=== PATIENT | male | born 1960 | race African-American/Black ===

== ENCOUNTER 2019-07-07 05:39 | Inpatient (IN) | payer BC ==
[2019-06-24 11:32] VITALS: BMI 32.1
[~2019-07-07 05:39] MED LIST: CELECOXIB 200 MG CAPSULE PO ONE; PANTOPRAZOLE 40 MG TABLET (FP) PO ONE; oxyCODONE HCL 10 MG SUSTAINED ACTING TABLET PO ONE
[2019-07-07] MEDS ORDERED: PANTOPRAZOLE 40 MG TABLET (FP) ONE (06:44)
[2019-07-07] MEDS ORDERED: oxyCODONE HCL 10 MG SUSTAINED ACTING TABLET ONE (06:45)
[2019-07-07] MEDS ORDERED: CELECOXIB 200 MG CAPSULE ONE (06:45)
[2019-07-07] MEDS ORDERED: BUPIVACAINE LIPOSOME/PF (EXPAREL) 266 MG/20 ML VIAL ONE (06:48)
[2019-07-07] MEDS ORDERED: SODIUM CHLORIDE 0.9% P/F 10 ML VIAL IJ ONE (06:48)
[2019-07-07] MEDS ORDERED: MIDAZOLAM HCL 2 MG/2 ML SINGLE DOSE VIAL ONE (06:48)
[2019-07-07] MEDS ORDERED: BUPIVACAINE HCL/PF 0.5% (5MG/ML) 10 ML VIAL ONE (07:10)
--- NOTE | 2019-07-07 07:42 | HP ---
Admitting History and Physical - Admission Chief Complaint: left knee osteoarthritis x years History of Present Illness: 58 year old male presents in regard to their left knee. Long-standing history of left knee osteoarthritis. Patient complains of pain, limited range of motion , difficulty ambulating, and difficulty with activities of daily living. Patient has failed conservative treatment options including PO medications, activity modification, injections, and exercise programs. At this point, patient would like to proceed with surgical intervention, left total knee arthroplasty MAKOplasty. History Source: Patient - Past Medical History Musculoskeletal: Yes: Osteoarthritis - Past Surgical History Additional Past Surgical History: See written history & physical. - Smoking History Smoking history: Current some day smoker Have you smoked in the past 12 months: Yes If you are a former smoker, when did you quit?: SMOKES 1 CIGAR PER YR - Alcohol/Substance Use Hx Alcohol Use: Yes (1 BEER) Home Medications - Allergies Allergies/Adverse Reactions: Allergies Allergy/AdvReac Type Severity Reaction Status Date / Time latex AdvReac Mild DRY SKIN Verified 06/24/19 11:20 - Home Medications Home Medications: Ambulatory Orders NK [No Known Home Medication] 06/24/19 Review of Systems - Review of Systems Musculoskeletal: reports: Decreased ROM (left knee), Joint Pain (left knee), Joint Swelling (left knee) Physical Examination Vital Signs: Vital Signs Temperature 98.4 F 07/07/19 06:58 Pulse Rate 70 07/07/19 06:58 Respiratory Rate 18 07/07/19 06:58 Blood Pressure 127/84 07/07/19 06:58 O2 Sat by Pulse Oximetry (%) Constitutional: Yes: Well Nourished, No Distress Eyes: Yes: Conjunctiva Clear HENT: Yes: Atraumatic, Normocephalic Neck: Yes: Supple Cardiovascular: Yes: Regular Rate and Rhythm Respiratory: Yes: Regular Gastrointestinal: Yes: Soft ...Rectal Exam: Yes: Deferred Musculoskeletal: Yes: Joint Stiffness (left knee), Joint Swelling (left knee) Assessment/Plan 58 year old male presents in regard to their left knee. Long-standing history of left knee osteoarthritis. Patient complains of pain, limited range of motion , difficulty ambulating, and difficulty with activities of daily living. Patient has failed conservative treatment options including PO medications, activity modification, injections, and exercise programs. At this point, patient would like to proceed with surgical intervention, left total knee arthroplasty MAKOplasty. Pros, cons, risks, benefits, and alternatives of a left total knee arthroplasty MAKOplasty were discussed with the patient at length. Patient confirms their understanding and consents to proceed with a left total knee arthroplasty MAKOplasty.
[2019-07-07] MEDS ORDERED: VANCOMYCIN 1,000 MG VIAL (RESTRICTED TO ID ONLY) ONE (07:52)
[2019-07-07] MEDS ORDERED: TRANEXAMIC ACID 1000 MG/10 ML VIAL ONE ×3 (07:52→11:06)
[2019-07-07] MEDS ORDERED: ceFAZolin SODIUM 1 GM VIAL ONE ×2 (07:53→09:01)
[2019-07-07] MEDS ORDERED: SUCCINYLCHOLINE CHLORIDE 200 MG/10 ML SYRINGE ONE (08:10)
[2019-07-07] MEDS ORDERED: PROPOFOL 20 ML ONE ×2 (08:10→10:09)
[2019-07-07] MEDS ORDERED: TRANEXAMIC ACID 1000 MG/10 ML VIAL IVPUSH ONE (08:30)
[2019-07-07] MEDS ORDERED: CEFAZOLIN 2 GM in DEXTROSE 5%-WATER - 50 ML IVPB ONE (08:30)
[2019-07-07] MEDS ORDERED: DEXAMETHASONE SOD PHOSPHATE 4 MG/1 ML VIAL ONE (09:07)
[2019-07-07] MEDS ORDERED: ONDANSETRON 4 MG/2 ML VIAL ONE (09:07)
[2019-07-07] MEDS ORDERED: KETOROLAC TROMETHAMINE 30 MG/1 ML VIAL ONE (09:07)
[2019-07-07] MEDS ORDERED: ACETAMINOPHEN INJECTION 100 ML IVPB ONE (12:07)
[2019-07-07] MEDS ORDERED: ACETAMINOPHEN 1000 MG/100 ML VIAL (NON FORMULARY) IVPB ONE (12:18)
--- NOTE | 2019-07-07 12:18 | OP ---
Operative Note - Note: Operative Date: 07/07/19 Pre-Operative Diagnosis: left knee OA Operation: left MADDI TKA Post-Operative Diagnosis: Same as Pre-op Surgeon: Booker Steiner Enamel Sprayer: Nat Pryor Anesthesia: Spinal Estimated Blood Loss (mls): 200
[2019-07-07] MEDS ORDERED: ONDANSETRON 4 MG/2 ML VIAL IVPUSH PRN (12:19)
[2019-07-07] MEDS ORDERED: MAGNESIUM HYDROX 2400MG/30ML ORAL SUSPENSION 30 ML CUP PO PRN (12:19)
[2019-07-07] MEDS ORDERED: MAG HYDROX/AL HYDROX/SIMETH 30 ML UNIT-DOSE CUP PO PRN (12:19)
[2019-07-07] MEDS ORDERED: traMADol HCL 50 MG TABLET PO PRN (12:39)
[2019-07-07] MEDS ORDERED: oxyCODONE HCL 5 MG TABLET PO PRN (12:39)
[2019-07-07] MEDS: traMADol HCL 50 MG TABLET PO SCH ×2 (12:48→12:55)
[2019-07-07] MEDS: LACTATED RINGERS SOLUTION 1,000 ML IV SCH (12:52)
[2019-07-07] MEDS: oxyCODONE HCL 5 MG TABLET PO PRN (16:30)
[2019-07-07] MEDS: KETOROLAC TROMETHAMINE 30 MG/1 ML VIAL IVPUSH SCH (16:30)
[2019-07-07] MEDS: CEFAZOLIN 2 GM/D5W 2 GM/50 ML ML IVPB SCH (18:46)
[2019-07-07] MEDS: ACETAMINOPHEN 325 MG TABLET (FP) PO SCH (18:46)
[2019-07-07] MEDS ORDERED: DEXAMETHASONE SOD PHOSPHATE 10 MG/1 ML VIAL IVPB ONE (20:00)
[2019-07-07] MEDS: SENNOSIDES/DOCUSATE COMBO (SENNA PLUS) TABLET (UD) PO SCH (21:37)
[2019-07-07] MEDS: ASCORBIC ACID 500 MG TABLET (FP) PO SCH (21:37)
[2019-07-07] MEDS: CELECOXIB 200 MG CAPSULE PO SCH (21:37)
[2019-07-07] MEDS: GABAPENTIN 300 MG CAPSULE (FP) PO SCH (21:37)
[2019-07-07] MEDS: oxyCODONE HCL 10 MG SUSTAINED ACTING TABLET PO SCH (21:39)
[2019-07-08] MEDS: ACETAMINOPHEN 325 MG TABLET (FP) PO SCH ×4 (00:45→23:40)
[2019-07-08] MEDS: KETOROLAC TROMETHAMINE 30 MG/1 ML VIAL IVPUSH SCH ×2 (00:45→06:19)
[2019-07-08] MEDS: CEFAZOLIN 2 GM/D5W 2 GM/50 ML ML IVPB SCH (01:03)
[2019-07-08 08:04] LABS: HEMATOCRIT 45.7 % (35.4-49); HEMOGLOBIN 15.4 GM/dl (11.7-16.9); MCH 31.3 pg (25.7-33.7); MCHC 33.7 g/dl (32.0-35.9); MEAN CELL VOLUME 93.1 fl (80-96); MEAN PLT VOLUME 10.4 fl (7.5-11.1); PLATELET COUNT 172 K/MM3 (134-434); RBC 4.91 M/mm3 (4.00-5.60); RDW 13.2 % (11.9-15.9); WHITE BLOOD COUNT 11.9 K/mm3 (4.0-10.8)
[2019-07-08 08:14] LABS: CALCIUM 8.7 mg/dl (8.5-10); CREATININE 1.1 mg/dl (0.55-1.3); POTASSIUM 5.4 mmol/L (3.5-5.1)
[2019-07-08] MEDS: ASPIRIN 325 MG TABLET PO SCH (08:46)
[2019-07-08] MEDS: ASCORBIC ACID 500 MG TABLET (FP) PO SCH ×2 (09:38→21:30)
[2019-07-08] MEDS: MULTIVITAMINS (DAILY MVI) TABLET (FP) PO SCH (09:38)
[2019-07-08] MEDS: CELECOXIB 200 MG CAPSULE PO SCH ×2 (09:38→21:30)
[2019-07-08] MEDS: oxyCODONE HCL 10 MG SUSTAINED ACTING TABLET PO SCH ×2 (09:38→21:29)
[2019-07-08] MEDS: SENNOSIDES/DOCUSATE COMBO (SENNA PLUS) TABLET (UD) PO SCH ×2 (09:38→21:30)
[2019-07-08] MEDS: GABAPENTIN 300 MG CAPSULE (FP) PO SCH ×2 (09:38→21:30)
[2019-07-08] MEDS: PANTOPRAZOLE 40 MG TABLET (FP) PO SCH (09:38)
--- NOTE | 2019-07-08 11:22 | SPEC ---
DATE OF OPERATION: 07/07/2019 PREOPERATIVE DIAGNOSIS: Left knee osteoarthritis. POSTOPERATIVE DIAGNOSIS: Left knee osteoarthritis. PROCEDURE: Left total knee replacement with MAKOplasty robotic navigation. ATTENDING SURGEON: Booker Steiner MD PEARL STRINGER: JOSELINE Temple ANESTHESIA: Spinal plus sedation. ESTIMATED BLOOD LOSS: 200 mL. COMPLICATIONS: None. DISPOSITION: The patient was transferred to the PACU in stable condition. IMPLANTS USED: [place] [employer] cementless knee components, size 4 femoral component, size 5 tibial component, 11-mm posterior stabilized polyethylene component, 29-mm patellar component. INDICATIONS: This is a 58-year-old male who presented to the office complaining of severe left knee pain. Has seen and examined by Dr. Steiner and diagnosed with severe left knee osteoarthritis. The patient was initially treated conservatively with injections, medications, and physical therapy but continued to have severe pain and ambulatory dysfunction. He was, therefore, indicated for a left total knee replacement. The risks, benefits, and alternatives to the procedure were explained to the patient in great detail, and he elected to proceed with the procedure. DESCRIPTION OF PROCEDURE: On the day of surgery, the patient was taken to the operating room and placed on the OR table. Spinal anesthesia was administered by the anesthesiologist. The patient was then positioned supine on the table and all bony prominences were padded. The knee was then prepped and draped in the usual sterile fashion and intravenous antibiotics were given for infection prophylaxis. A surgical time-out was then performed with the team, and the patients identity, procedure, side, availability of implants, and the administration of antibiotics was confirmed. With the knee flexed, a midline incision was made and carried down through the subcutaneous fat to the underlying retinaculum. A medial parapatellar arthrotomy was performed. This was followed by a subperiosteal dissection of the tissue off the proximal, medial tibia. A portion of fat pad was removed from under the patellar tendon, and a small portion of fat was excised off the distal supracondylar femur. Electrocautery and an Aquamantys bipolar sealing device were used to achieve hemostasis. The knee was then flexed further and the anterior horn of the lateral meniscus was released from the midline. Next, the anterior and posterior cruciate ligaments were transected. Grade 4 changes were noted diffusely throughout the knee. Femoral and tibial checkpoints were then placed in the appropriate location using a mallet. Two parallel bicortical self-drilling pins were placed in the tibial diaphysis after making stab incisions and bluntly dissecting down to bone. Two pins were then placed in the distal supracondylar femur. The Syn[employer] navigation arrays were then attached to both the femoral and tibial pins and the lower extremity was then registered to the robotic navigation device using various joint movements, as well as inputting several dozen reference points. The knee was then taken through a full range of motion with a corrective force applied. Alignment in varus/valgus as well as flexion/extension and soft tissue balance was measured in various positions. The navigation device showed a numerical and graphic representation of the soft tissue balance. The components were repositioned virtually using the software until optimal soft tissue balance was achieved on screen. Once this was accomplished, the final plan was saved and sent to the robot. Self-retaining retractors were then placed at the joint line for exposure and protection of the collateral ligaments. The robot was brought into the sterile field and registered with the navigation device. The robotic arm with attached oscillating saw blade was then used to perform femoral and tibial bone cuts as per the saved software plan. The femoral box cut was made using the appropriately sized manual cutting guide. The knee was then irrigated. Trial components were placed and the knee was taken through a full range of motion to assess soft tissue balance and alignment. The range of motion was found to be excellent and the soft tissue balance was optimal and according to plan. The knee was then put into extension and the patella everted. The synovium around the patella was circumscribed with electrocautery. A caliper was used to measure the patellar thickness and a saw was then used to resect the patella at the chondro-osseous junction. The cut surface was then sized and drilled for the appropriate patellar button, with care taken to medialize it. A trial patella was then placed and the knee was again taken through a full range of motion. The knee was found to have both good balance and good patellar tracking. All of the components were removed except the tibial base plate. The appropriate instrumentation was used to drill and punch the proximal tibia for the keel of the final component. All bony surfaces were then cleaned with pulsatile lavage and dried. Cementless [place] [employer] knee replacement components were then impacted in place and found to have a stable press-fit. A trial polyethylene component was placed and the knee was again taken through a full range of motion to assess stability, balance, and patellar tracking. This was found to be optimal and the trial polyethylene was exchanged for the appropriately sized real implant. The wound was then thoroughly irrigated with normal saline. A 3-minute dilute Betadine lavage was performed. The knee was again irrigated using a pulsatile lavage device. A periarticular injection was used to locally infiltrate the capsular tissues surrounding the implant and prosthesis. Then No. 1 Polysorb and 0 VLoc 180 barbed sutures were used to close the arthrotomy. Then No. 1 Polysorb and 2-0 VLoc 90 sutures were used in the subcutaneous tissues. Then 4-0 undyed Vicryl and Dermabond skin adhesive was used to close the stab incisions made for the navigation pins. The skin was closed using both 3-0 VLoc 90 suture in a running subcuticular fashion and Dermabond skin adhesive. Once this was completed a sterile Aquacel dressing and compressive Evangelist-wrap was applied. The patient was then awakened and taken to the PACU in stable condition. Darwin [id number]
--- NOTE | 2019-07-08 14:16 | PN ---
Progress Note (short form) - Note Progress Note: ANESTHESIA POSTOP 58 YO MALE POD#1 S/P L TKA Patient doing well. Sitting in Chair. Pain adequately controlled. Tolerating PO VSS, Afebrile Continue current care. Encouraged PT and IS. No anesthetic complications.
[2019-07-08] MEDS: oxyCODONE HCL 5 MG TABLET PO PRN (15:02)
--- NOTE | 2019-07-09 05:32 | PN ---
Progress Note (short form) - Note Progress Note: Pt seen and examined yesterday evening. Doing well. Block resolving. AVSS Selected Entries 07/09/19 00:58 Temperature 98.0 F Temperature Oral Source Pulse Rate 66 Respiratory 18 Rate Blood Pressure 130/78 O2 Sat by Pulse 94 L Oximetry (%) Oxygen Delivery Room Air Method Laboratory Tests 07/08/19 07/08/19 07:29 07:29 WBC 11.9 H Hgb 15.4 Hct 45.7 Plt Count 172 Sodium 134 L Potassium 5.4 H Chloride 101 Carbon Dioxide 25 Anion Gap 8 BUN 19.0 H Creatinine 1.1 Est GFR (CKD-EPI)AfAm 85.31 Est GFR (CKD-EPI)NonAf 73.61 Random Glucose 135 H Calcium 8.7 Gen: NAD LLE: c/d/i, NVID A/P s/p L TKA PT/OOB - WBAT LLE Recheck labs in AM D/C home Sunday
[2019-07-09] MEDS: ACETAMINOPHEN 325 MG TABLET (FP) PO SCH ×3 (05:39→12:18)
--- NOTE | 2019-07-09 05:43 | DS ---
Physical Examination Vital Signs: Vital Signs Temperature 98.0 F 07/09/19 00:58 Pulse Rate 66 07/09/19 00:58 Respiratory Rate 18 07/09/19 00:58 Blood Pressure 130/78 07/09/19 00:58 O2 Sat by Pulse Oximetry (%) 94 L 07/09/19 00:58 Labs: CBC, BMP 07/08/19 07:29 07/08/19 07:29 Discharge Summary Problems reviewed: Yes Reason For Visit: LEFT KNEE OSTEOARTHRITIS Current Active Problems Osteoarthritis of left knee (Acute) Procedures: Principal: left MADDI BLANQUITA Hospital Course: Admitted for elective surgery. Procedure performed without complications. Pt received postoperative antibiotic prophylaxis and DVT ppx. Ambulated with physical therapy. Stable for discharge home with outpatient followup. Condition: Stable - Instructions Diet, Activity, Other Instructions: Dr. Steiner - Knee Replacement Instructions Keep the Aquacel dressing on until removed by Dr. Steiner in the office- it is antibacterial and waterproof and you can shower with it on. Call the office for a follow-up appointment with Dr. Steiner on SundayJuly 25. [phone] Take one Aspirin 325mg daily for 6 weeks to prevent blood clots in your legs. Take one Pantoprazole 40mg daily for 6 weeks to protect against heartburn and ulcers. Take Cephalexin (antibiotic) 3x/day for 10 days to help prevent skin infection. Take Celebrex 200mg twice daily for 30 days to reduce swelling and inflammation. Take a multivitamin, stool softener, and extra Vitamin C supplement daily. For pain: *Mild pain (1-3/10): Take 1 Tramadol tablet every 4 hours as needed. Moderate pain (4-6/10): Take 1 Tramadol tablet and 1 Percocet tablet every 4 hours as needed. Severe pain (7-10/10): Take 1 Tramadol tablet and 2 Percocet tablets every 4 hours as needed. Activity: You can put as much weight on the operative leg as you want. Right after you get home, there will be a physical therapist coming to your house to help you walk around and bend/straighten your knee. After your follow-up appointment, you will be sent for more intensive outpatient physical therapy which will include machines and equipment that the home therapist cannot bring to your house. Always use a walker or cane for balance and to prevent falls. Expect to see swelling/bruising from the operative site all the way down to your toes. Wear the compression stocking on the operative side during the day to minimize how much swelling there is in your foot/ankle. Don't wear the stocking at night. You don't have to wear a stocking on the other side. Disposition: VNS/HOME HEALTH CARE - Home Medications Comprehensive Discharge Medication List: Ambulatory Orders Celecoxib [CeleBREX -] 200 mg PO BID #60 capsule 07/07/19 Cephalexin Monohydrate [Keflex -] 500 mg PO TID #30 capsule 07/07/19 Oxycodone HCl/Acetaminophen [Percocet 5-325 mg Tablet] 1 - 2 tab PO Q4H PRN #60 tablet MDD 10 07/07/19 Pantoprazole Sodium [Protonix -] 40 mg PO DAILY #40 tablet.ec 07/07/19 traMADol HCL [Ultram -] 50 mg PO Q4H PRN #42 tablet MDD 6 07/07/19
[2019-07-09] MEDS: oxyCODONE HCL 5 MG TABLET PO PRN (06:15)
[2019-07-09] MEDS: KETOROLAC TROMETHAMINE 30 MG/1 ML VIAL IVPUSH SCH (08:02)
[2019-07-09] MEDS: LACTATED RINGERS SOLUTION 1,000 ML IV SCH (08:02)
[2019-07-09 08:03] LABS: HEMATOCRIT 41.2 % (35.4-49); HEMOGLOBIN 13.6 GM/dl (11.7-16.9); MCH 30.8 pg (25.7-33.7); MCHC 32.9 g/dl (32.0-35.9); MEAN CELL VOLUME 93.6 fl (80-96); MEAN PLT VOLUME 10.3 fl (7.5-11.1); PLATELET COUNT 165 K/MM3 (134-434); RDW 13.8 % (11.9-15.9); WHITE BLOOD COUNT 8.8 K/mm3 (4.0-10.8)
[2019-07-09 08:09] LABS: CALCIUM 8.6 mg/dl (8.5-10); CREATININE 1.1 mg/dl (0.55-1.3); POTASSIUM 4.7 mmol/L (3.5-5.1)
[2019-07-09] MEDS: ASPIRIN 325 MG TABLET PO SCH (08:12)
[2019-07-09 09:36] VITALS: BP 116/76; PULSE 67; TEMP 97.6
[2019-07-09] MEDS: PANTOPRAZOLE 40 MG TABLET (FP) PO SCH (09:36)
[2019-07-09] MEDS: MULTIVITAMINS (DAILY MVI) TABLET (FP) PO SCH (09:36)
[2019-07-09] MEDS: ASCORBIC ACID 500 MG TABLET (FP) PO SCH (09:36)
[2019-07-09] MEDS: CELECOXIB 200 MG CAPSULE PO SCH (09:36)
[2019-07-09] MEDS: SENNOSIDES/DOCUSATE COMBO (SENNA PLUS) TABLET (UD) PO SCH (09:37)
[2019-07-09] MEDS: GABAPENTIN 300 MG CAPSULE (FP) PO SCH (09:37)
[2019-07-09] MEDS: oxyCODONE HCL 10 MG SUSTAINED ACTING TABLET PO SCH (09:37)
--- NOTE | 2019-07-10 15:01 | PATH ---
Surgical Pathology Report Patient Name: LULU NAM Med. Rec. #: [id number] /Age/Gender: 1960 (Age: 58) / M Account: [id number] Location: [facility] MED-SURG Taken: 07/07/2019 Received: 07/07/2019 Reported: 07/10/2019 Physicians: Booker Steiner M.D. Specimen(s) Received BONES LEFT KNEE Clinical History Left knee osteoarthritis Final Diagnosis BONES, KNEE, LEFT, TOTAL KNEE REPLACEMENT MAKOPLASTY: BONE WITH DEGENERATIVE JOINT DISEASE. Electronically Signed Milagros Lynne M.D. Gross Description Received in formalin labeled "bones left knee," is a 13.5 x 11.0 x 1.5 cm aggregate of multiple portions of bone and soft tissue, consistent with knee bones. There is a 2.0 cm in greatest dimension area of eburnation present. The remaining articular surfaces are graham-brown and diffusely granular. The underlying trabecular bone is yellow and hard. [employer] sections are submitted in one cassette, following decalcification. 07/09/2019 [facility]07/09/2019
== END 2019-07-09 12:45 | disposition home health service (06) | DRG 470 ==
LOC: FM/S 05:39
PROVIDERS: ADMIT Student in an Organized Health Care Education/Training Program; ATTEND Student in an Organized Health Care Education/Training Program
PROC: 8E0Y0CZ Robotic Assisted Procedure of Lower Extremity, Open Approach (ICD-10-PCS; 2019-07-07)
PROC: 0SRD0JA Replacement of Left Knee Joint with Synthetic Substitute, Uncemented, Open Approach (ICD-10-PCS; principal; 2019-07-07 09:25)
DX: M17.12 Unilateral primary osteoarthritis, left knee (principal)
CPT/HCPCS: 36415; 73560-TC-LT-FY; 80048; 85027; 94760; 97116-GP; 97163-GP; J0131; J1100